=== PATIENT | female | born 1995 | race Caucasian/White ===

== ENCOUNTER 2018-08-30 18:33 | Emergency (ER) | payer OTHER ==
--- NOTE | 2018-08-30 18:52 | EDPHY ---
H & P Stated Complaint: 3 weeks rlq abd pain denies n/v or diarrhea Source: Patient, Family (Mother) Exam Limitations: No limitations - Personal History LMP (Females 10-55): Over 28 Days Ago Current Tetanus Diphtheria and Acellular Pertussis (TDAP): Yes - Medical/Surgical History Hx Asthma: No Hx Chronic Respiratory Disease: No Hx Diabetes: No Hx Cardiac Disease: No Hx Renal Disease: No Hx Cirrhosis: No Hx Alcoholism: No Hx HIV/AIDS: No Hx Splenectomy or Spleen Trauma: No Other PMH: Anorexia - Social History Smoking Status: Never smoked Time Seen by Provider: 08/30/18 18:51 HPI/ROS: HPI: This is a 23-year-old female who presents with Chief Complaint: 3 weeks rlq abd pain denies n/v or diarrhea Location: Right lower quadrant Quality: Pain Duration: 3 weeks Signs and Symptoms: no fever, no nausea, no vomiting, no hematemesis, no blood in stool, no abdominal bloating, no diarrhea, no back pain, no urinary symptoms , no vaginal bleeding/discharge, no indigestion, no chest pain, no shortness of breath Timing: Worse 2 weeks ago Severity: [id number] Context: Patient was sent over from her primary care provider with request for CT abdomen and pelvis scan to rule out appendicitis. Patient reports that for the last 3 weeks she has experience right lower quadrant pain that is nonradiating in nature. She reports that 2 weeks ago she had more severe pain that was a little bit more constant and associated with nausea and decreased appetite. She reports that she no longer has nausea or decreased appetite. Her last bowel movement was yesterday. She denies fever, diarrhea, urinary symptoms. Her last menstrual period was over 28 days ago which is not abnormal for her. She is not currently sexually active. Patient reports that while at her primary care office today they ran a urine test and it was negative per patient and mother. Modifying Factors: None Comment: ROS: A comprehensive 10 system review of systems is otherwise negative aside from elements mentioned in the history of present illness. MEDICAL/SURGICAL/SOCIAL HISTORY: Medical history: Generally healthy. Does not take any regular medications. LMP over 28 days ago Surgical history: Denies Social history: Nonsmoker. Family history noncontributory. CONSTITUTIONAL: Well-developed, well-nourished, nontoxic-appearing young adult female, mother at bedside, awake and alert, no obvious distress HEENT: Atraumatic and normocephalic, PERRL, EOMI. Nares patent; no rhinorrhea; no nasal mucosal edema. Tympanic membranes clear. Oropharynx clear, no exudate and moist pink mucosa. Airway patent. No lymphadenopathy. No meningismus. Cardiovascular: Normal S1/S2, regular rate, regular rhythm, without murmur rub or gallop. PULMONARY/CHEST: Symmetrical and nontender. Clear to auscultation bilaterally. Good air movement. No accessory muscle usage. ABDOMEN: Soft, nondistended, mild right lower quadrant tenderness to deep palpation, no rebound, no guarding, no peritoneal signs, no masses or organomegaly. No CVAT. Bowel sounds heard x4 quadrants. EXTREMITIES: 2/2 pulses, strength 5/5, no deformities, no clubbing, no cyanosis or edema. NEUROLOGICAL: no focal neuro deficits. GCS 15. SKIN: Warm and dry, no erythema. no rash. Good capillary refill. (Yudelka Tim) Constitutional: Initial Vital Signs Temperature (C) 36.8 C 08/30/18 18:43 Heart Rate 54 L 08/30/18 18:43 Respiratory Rate 18 08/30/18 18:43 Blood Pressure 103/63 08/30/18 18:43 O2 Sat (%) 97 08/30/18 18:43 O2 Delivery Mode Room Air Allergies/Adverse Reactions: No Known Allergies Allergy (Verified 08/30/18 18:43) Home Medications: Medication Instructions Recorded NK [No Known Home Meds] 03/30/18 Medical Decision Making ED Course/Re-evaluation: Vital signs reviewed and stable upon arrival. IV access, laboratory studies, CT abdomen and pelvis scan ordered Hernandes score=2 Right lower quadrant tenderness +2; yes Elevated temperature greater than 99.1 F +1; no Rebound tenderness +1; no Migration of pain to the right lower quadrant +1; no Anorexia +1; no Nausea or vomiting +1; no Leukocytosis greater than 13832+ 2; no Leukocyte left shift+1; no Less than or equal to 3 equals appendicitis unlikely 1934: Labs reviewed. No signs of leukocytosis/anemia/platelet dysfunction/GENNY/ electrolyte imbalance/pancreatitis/. Mildly elevated AST and ALT 2034: Called by radiologist, Dr. Ramírez, who reports that CT abdomen and pelvis scan shows normal appendix, constipation, and no signs of obstruction. Patient given MiraLax in the ED and advised to continue the same at home, push fluids increase fiber. This patient was seen under the supervision of my secondary supervising physician. I evaluated care for this patient with my attending. Discussed this patient with Dr. Wang. (Yudelka Tim) Differential Diagnosis: Abdominal pain in a female including but not limited to ovarian cyst, pelvic inflammatory disease, ovarian torsion, urinary tract infection, and appendicitis. (Yudelka Tim) Other Provider: The patient was evaluated and managed by the Physician Beater Machine Operator. I discussed the patient's presentation and course with the midlevel provider with them and agree with the evaluation. My co-signature indicates that I have reviewed this chart and I agree with the findings and plan of care as documented. I am the secondary supervising physician. (Tania Wang) - Data Points Laboratory Results: Laboratory Results 08/30/18 19:00 08/30/18 19:00 Medications Given: Discontinued Medications Polyethylene Glycol (Miralax) 17 gm PO EDNOW ONE Stop: 08/30/18 20:36 Last Admin: 08/30/18 20:43 Dose: 17 gm Departure - Departure Disposition: Home, Routine, Self-Care Clinical Impression: Constipation by delayed colonic transit Condition: Good Instructions: Polyethylene Glycol 3350 (By mouth), Constipation (ED) Additional Instructions: Consume a minimum of 8-10 glasses of water or electrolyte fluid replacement drinks that include Gatorade, Powerade, Pedialyte. Eat a bland diet for the next 48 hours and then slowly advance as tolerated. Take [id number] MiraLax daily for the next 7 days and then daily as needed for constipation. Return to the ER immediately if you experience new, continued or worsening abdominal pain, fevers/chills, inability to tolerate oral intake, new pain, or any other symptoms that concern you. Referrals: Roseann Alarcon MD [Primary Care Provider] - As per Instructions
[2018-08-30] MEDS ORDERED: IOPAMIDOL (ISOVUE 370) 100 ML BTL IV ONE (19:03)
[2018-08-30 19:10] LABS: PLATELET COUNT 288 10^3/uL (150-400)
[2018-08-30] MEDS ORDERED: POLYETHYLENE GLYCOL 3350 17 GM PKT PO ONE (20:35)
[2018-08-30 20:49] VITALS: BP 101/72
== END 2018-08-30 20:48 | disposition home or self-care (01) ==
DX: R10.31 Right lower quadrant pain (principal); K59.01 Slow transit constipation; Z86.59 Personal history of other mental and behavioral disorders
CPT/HCPCS: Q9967